=== PATIENT | female | born 1995 | race Caucasian/White ===

== ENCOUNTER → 2017-01-11 | Outpatient (CLI) | payer OTHER | LOC: MC.RAD 08:45 | DX: N63 Unspecified lump in breast (principal); R92.8 Other abnormal and inconclusive findings on diagnostic imaging of breast ==

== ENCOUNTER → 2018-05-15 | Outpatient (CLI) | payer BC | LOC: COL.RAD 14:20 | DX: R93.49 Abnormal radiologic findings on diagnostic imaging of other urinary organs (principal) ==